=== PATIENT | male | born 1995 | race Hispanic/Latino ===

== ENCOUNTER 2018-03-27 20:35 | Emergency (ER) | payer SELFPAY ==
[2018-03-27] MEDS ORDERED: Ibuprofen 800 MG TAB ONE (21:27)
== END 2018-03-27 22:45 | disposition home or self-care (01) ==
LOC: ERS 20:35
DX: S39.012A Strain of muscle, fascia and tendon of lower back, initial encounter (principal); V43.92XA Unspecified car occupant injured in collision with other type car in traffic accident, initial encounter
CPT/HCPCS: 99283